=== PATIENT | male | born 1960 | race Caucasian/White ===

== ENCOUNTER → 2018-04-04 | Day surgery (SDC) | payer OTHER ==
[~2018-04-04] VITALS: Ht 170.2 cm; Wt 97.1 kg
[~2018-04-04] MED LIST: ABILIFY 15MG15 MG PO; CAMBIA50 M1 PO; CIALIS5 M1 PO; COLCHICINE0.6 MG PO; CYCLOBENZAPRINE5 M2 PO; DILAUDID4 M1 PO; FENOFIBRATE145 MG PO; FLEXERIL10 MG PO; FLOMAX0.4 M1 PO; FLUOXETINE HCL20 M2 PO; HYDROMORPHONE HY4 MG PO; LAMICTAL200 M1 PO; LAMOTRIGINE200 MG PO; LEVOTHYROXIN0.112 M1 PO; LINZESS145 MCG PO; LISINOPRIL20 M1 PO; LORAZEPAM1 M1 PO; LORAZEPAM1 MG PO; LOVASTATIN10 MG PO; METOCLOPRAMIDE10 MG PO; MORPHINE SULFAT30 M2 PO; MORPHINE SULFAT30 M3 PO; NEXIUM40 M1; OXYCONTIN30 MG PO; PREDNISONE10 M2 PO; PROAIR HFA8.5 GM INH; PROTONIX 40MG T40 MG PO; PROTONIX40 M3 PO; REGLAN10 MG PO; SILENOR3 MG PO; SPIRIVA 18 MCG18 MCG INH; SUCRALFATE1 GM PO; SYMBICORT 80/4.1 PUF INH; TOPIRAMATE50 MG PO; ZANTAC300 MG PO; ZOFRAN4 M2 SL
--- NOTE | 2018-04-04 10:03 | Operative Report ---
Operative/Inv Procedure Report Surgery Date: 04/04/18 Name of Procedure: Intra thecal bolus injection of Ziconotide - 4 microgram, under fluoroscopic guidance Pre-Operative Diagnosis: Chronic lower back,neck and shoulder pain , S/P ACDF, L5/S1 fusion surgery, S/p implant of SCS ([employer] [place] --> [place]) in the past. Post-Operative Diagnosis: same Estimated Blood Loss: none Surgeon/Warehouse Logistics Coordinator: Raimundo PALOMARES,Boy Bird Asst: None Anesthesia: local monitored anesthesi Monitors: per anesthesia IV Fluids: per anesthesia and post op D5 LR @ 150 mll/hr Implants: none Urine Output: per aneshtesia Drains: None Specimens: none Microbiology: none Tourniquet: none Complications: none Condition: stable Operative Indication: Mr. Perez suffers from chronic Lower back and neck/shoulder pain symptoms. He was in the past under the pain management of other physician and had SCS implant of [employer] [place] system and converted to Nevro. The pt transferred his care to [facility] and I evaluated the pt . Due to HX of IVIS, Inadequate control of lower back pain with above SCS ( about 30% pain control), I discussed with the pt about the Intrathecal Ziconotide trial as neuroanalgesic therapy option and he expressed interest in the procedure. Operative/Procedure Note Note: Risks and benefits of the procedure informed to the pt and consent for the procedure was obtained. Patient was given 2 gm Kefzol in the OR. Pt. was placed prone and fluoroscopy was used for the procedure. 2 % Lidocaine was used for the local infiltration. Fluoroscopic examination revealed L5-S1 fusion, evidence of the SCS system with extra spinal electrodes and the IPG on the left lateral lumbar spine area. Carefully after infiltration of skin and underlying tissues with lidocaine 22 G spinal needle was advanced in to intrathecal space at L4/5 level, staying away from the extra spinal SCS electrode system , without paresthesia of lower extremities and without heme. At this point 1 cc of Omnipaque 240 was injected and intrathecal spread of contrast was observed. At this point, total of 4 micrograms of Ziconotide (5 amador in 1 ml concentration was obtained from the [facility] in patient Pharmacy) was injected in increments with free aspiration of CSF in to the syringe at 2 amador dose and at 1 amador dose in the syringe. The needle was withdrawn, the puncture site dressed sterile and the pt was transferred to PACU for observation. Patient was awake in the PACU with 5/5 MP in both lower extremities. I will follow up the pt after 6 hrs post procedure observation in PACU and D/C of the pt. Findings: Evidence of the previously implanted Spinal column stimulation system and fusion of L5/S1 vertebrae with hardware. Discharge Disposition: PACU Additional Comments: None
--- NOTE | 2018-04-04 12:10 | RADIOLOGY REPORT ---
EXAMINATION: Intraoperative fluoroscopy CLINICAL INFORMATION: 57-year-old male requiring fluoroscopy assistance for operative procedure. COMPARISON: None. TECHNIQUE: Intraoperative fluoroscopy was provided for use by Dr. Eubanks. A total of 11 images were saved to PACS. TOTAL FLUOROSCOPIC TIME: 0.5 minutes FINDINGS\E\IMPRESSION: Intraoperative fluoroscopy provided for use by Dr. Eubanks. Please see operative note for detailed findings.
== END ==
LOC: STS 06:04
DX: M54.2 Cervicalgia (principal); M54.5 Low back pain; M96.1 Postlaminectomy syndrome, not elsewhere classified; M54.17 Radiculopathy, lumbosacral region; G89.4 Chronic pain syndrome; Z79.891 Long term (current) use of opiate analgesic; G47.33 Obstructive sleep apnea (adult) (pediatric); J44.9 Chronic obstructive pulmonary disease, unspecified; I10 Essential (primary) hypertension; Z87.891 Personal history of nicotine dependence; E03.9 Hypothyroidism, unspecified
CPT/HCPCS: 36415; 76000; 93005; 93010; J0690; J2001; J2250; J2278